=== PATIENT | female | born 2005 | race Caucasian/White ===

== ENCOUNTER 2025-05-27 13:17 | Emergency (ER) | payer BC, SELFPAY ==
[2025-05-27 13:17] VITALS: BMI 22.9
[2025-05-27 13:21] VITALS: BP 123/84
--- NOTE | 2025-05-27 13:43 | ED.GENMED ---
History of Present Illness
General
Chief Complaint: Allergic Reaction
Source: patient
Exam Limitations: none
Time Seen by Provider: 05/27/25 13:32
History of Present Illness
History of Present Illness:
Patient ate a meatball about an hour and a half ago that was likely cross contaminated with shellfish. Within minutes she developed scratchy throat some tightness itchiness to her chest. Gave herself a nasal epinephrine. Seemed to improve some.
Symptoms recurred and she repeated this about 20 minutes ago. Now feels relatively well with slight scratchiness. No general hives or itching. Followed by allergy.
Past History
Past History
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
ED Past Surgical History: Orthopedic, Tonsilectomy and Other (Sinus surgery)
Review of Systems
Review of Systems
All Other Systems: Not applicable
Respiratory: Denies trouble breathing
Cardiac: Reports no symptoms
Phy Exam
Physical Exam
Physical Exam:
GENERAL: Alert and oriented in no apparent distress
EYE: Orbits normal.
NECK: Supple, no swelling
ENT: Pharynx without erythema. No drooling no stridor. Airway clear.
CARDIAC: Regular rate and rhythm without any obvious murmurs.
LUNGS: Clear breath sounds,normal
ABDOMEN: Soft, without focal tenderness or distention
NEUROLOGICAL: Alert and oriented , grossly non-focal
SKIN: Warm and dry, no rash or lesion, no discoloration, skin intact. No hives
MUSCULOSKELETAL: No edema,no deformity.Good color
PSYCH: Normal and appropriate interaction.
Course
Orders/Labs/Results
Orders:
Orders
05/27/25 13:41
IV Insert/Care/Rem.- Treatment PRN
0.9% Sodium Chloride 500 ml [Nss] 500 ml IV BOLUS
Dexamethasone Sod Phosphate [Decadron] 8 mg IV NOW STA
Diphenhydramine [Benadryl] 25 mg IV NOW STA
Famotidine [Pepcid] 20 mg IV NOW STA
Pulse Ox/cont/shift [RESP] Stat
Quantity: 1
05/27/25 14:54
Tryptase [S] Urgent
Vital Signs
Initial and Last Documented VS:
Initial Vital Signs
Temp Pulse Resp BP Pulse Ox
98.2 F 92 16 123/84 98
05/27/25 13:21 05/27/25 13:21 05/27/25 13:21 05/27/25 13:21 05/27/25 13:21
Last Documented Vital Signs
Temp Pulse Resp BP Pulse Ox
98 F 84 16 107/54 100
05/27/25 16:00 05/27/25 16:00 05/27/25 16:00 05/27/25 15:30 05/27/25 16:00
MDM/Problems Addressed
Differential Diagnosis Includes:
Allergic reaction. Currently stable. No indication for repeat epinephrine at this time. Will give Benadryl H2 sandi and steroids. Observation. 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 There was some question or asking of doing testing to help them
with her diagnosis for ongoing issues via labs
*Pulse Oximetry
SaO2: 98
Oxygen Mode of Delivery: Room air
Patient hypoxic: no
*Critical Care Note
Total Time (30-74mins, 75-104mins- exclusive of procedures): Not Applicable
Update Note
Update Note:
Patient rechecked multiple times. Doing well. Discharged to follow-up
ED Attending Note
-
Portions of this chart may have been created with voice recognition software.� Occasional wrong word or��sound alike� substitutions may have occurred due to the inherent limitations of voice recognition software.
Discharge Plan
Departure
Patient Disposition: Home (Routine Discharge)
Date of Disposition: 05/27/25
Time of Disposition: 16:02
Patient with high blood pressure during this ER visit?: No
Discharge Problem:
Acute allergic reaction
Instructions: Allergic reaction - ED (DC)
Prescriptions:
New
prednisone 50 mg tablet
50 mg PO DAILY Qty: 5 0RF
neffy 2 mg/spray (0.1 mL) spray,non-aerosol
1 spray intranasal ONCE Qty: 2 0RF
Rx Instructions:
as a single dose, administer into one nostril; may repeat once in 5 minutes
Referrals:
Meli Escalante PA [Family Provider, Orthopedics]
Activity Restrictions/Additional Instructions:
Follow-up the lab result for her drafter (cad) electrical
Over the next few days recommend an H1 sandi, Pepcid, prednisone.
Interventions
Interventions:
*Risk Screen - Suicide Last Done: 05/27/25 13:21
*General Assessment Last Done: 05/27/25 15:00
*Neglect/Abuse Screening Last Done: 05/27/25 13:21
*ED- Fall Risk Assessment Last Done: 05/27/25 15:00
*Nursing Disposition Last Done: 05/27/25 15:00
ED- Cardiac Assessment Last Done: 05/27/25 13:59
ED- Pulmonary Assessment Last Done: 05/27/25 13:59
ED-Skin Assessment Last Done: 05/27/25 13:59
Discharge Date and Time
Discharge Date/Time: 05/27/25 16:09
Print Language: TRINIDADIAN
[2025-05-27] MEDS: DECADRON 8 MG IV (13:47)
[2025-05-27] MEDS: PEPCID 20 MG IV (13:47)
[2025-05-27] MEDS: BENADRYL 25 MG IV (13:47)
[2025-05-27] MEDS: NSS 500 IV (13:49)
[2025-05-27 14:00] VITALS: BP 116/71
[2025-05-27 14:31] VITALS: BP 109/54
[2025-05-27 15:00] VITALS: BP 101/89
[2025-05-27 15:30] VITALS: BP 107/54
== END 2025-05-27 16:09 | disposition home or self-care (01) ==
LOC: EMR 13:17
PROVIDERS: EMERGENCY PHYSICIAN Emergency Medicine; FAMILY PHYSICIAN Physician Assistant
DX: T78.1XXA Other adverse food reactions, not elsewhere classified, initial encounter (principal); R09.89 Other specified symptoms and signs involving the circulatory and respiratory systems; X58.XXXA Exposure to other specified factors, initial encounter; Z91.013 Allergy to seafood
CPT/HCPCS: 96374; 96375; 96361; 99284; 83520

== ENCOUNTER 2025-08-05 06:24 | Day surgery (SDC) | payer BC, SELFPAY ==
[2025-08-02 09:35] LABS: ALT (SGPT) 18 U/L (0-35); AST (SGOT) 23 U/L (14-36); Albumin 4.8 g/dl (3.5-5.0); Alkaline Phosphatase 111 U/L (38-126); Blood Urea Nitrogen 13 mg/dl (7-17); Calcium 9.7 mg/dl (8.4-10.2); Carbon Dioxide 28 mmol/L (22-30); Chloride 103 mmol/L (98-107); Glucose 84 mg/dl (70-99); Potassium 4.3 mmol/L (3.5-5.1); Sodium 136 mmol/L (135-145); Total Protein 7.7 g/dl (6.3-8.2); eGFR > 60.00
[2025-08-02 13:58] VITALS: BMI 22.8
[2025-08-05] VITALS (11 sets, daily range): BP systolic 98–122; BP diastolic 48–80; BMI 22.8
[2025-08-05] MEDS: TYLENOL 1000 MG PO (08:21)
[2025-08-05] MEDS: NORMOSOL-R/PLASMALYTE-A 1000 IV (08:22)
[2025-08-05] MEDS: ZOFRAN 4 MG IV (11:55)
[2025-08-05] MEDS: DILAUDID 0.25 MG IV (12:14)
== END 2025-08-05 13:52 | disposition home or self-care (01) ==
LOC: SDS 06:24
PROVIDERS: ATTENDING PHYSICIAN Student in an Organized Health Care Education/Training Program
DX: M25.371 Other instability, right ankle (principal); M65.971 Unspecified synovitis and tenosynovitis, right ankle and foot
CPT/HCPCS: 29898; 27698; 80053